=== PATIENT | female | born 1985 | race Two or more races ===

== ENCOUNTER 2019-01-28 02:39 | Emergency (ER) | payer MEDICAID ==
[~2019-01-28] VITALS: Ht 172.7 cm; Wt 99.8 kg
[2019-01-28] MEDS ORDERED: ACCU-CHEK COMFORT CURVE STRIP VI ONE (03:15)
[2019-01-28 04:10] LABS: Basophils # (auto) 0 uL; Basophils % (auto) 0.4 % (0.0-2.0); Eosinophils # (auto) 0.2 uL; Eosinophils % (auto) 2.4 % (0.0-7.0); Hematocrit 38.9 % (36.0-46.0); Hemoglobin 13.2 g/dL (12.2-16.2); Lymphocytes # (auto) 2.4 uL; Lymphocytes % (auto) 33.4 % (10.0-50.0); Mean Corpuscular Hemoglobin 31.9 pg (28.0-32.0); Monocytes # (auto) 0.8 uL; Monocytes % (auto) 10.6 % (0.0-12.0); Neutrophils # (auto) 3.9 uL; Neutrophils % (auto) 53.2 % (37.0-80.0); Nucleated Red Blood Cells % 0.1 %; Platelet Count (auto) 312 10^3/uL (140-450); Red Blood Cells 4.14 10^6/uL (4.0-5.20); Red Cell Distribution Width 13.4 % (11.8-14.3); White Blood Cell 7.3 10^3/uL (4.4-10.8)
[2019-01-28 04:36] LABS: Salicylate < 1.7 mg/dL (2.8-20.0)
[2019-01-28 04:37] LABS: Potassium 3.1 mmol/L (3.5-5.1)
[2019-01-28 04:41] LABS: Albumin 4.1 g/dL (3.4-5.0); BUN/Creatinine Ratio 16.2; Calcium 9.1 mg/dL (8.5-10.1)
[2019-01-28 04:48] LABS: Bilirubin, Total 0.9 mg/dL (0.2-1.0); Total Protein 8.6 g/dL (6.4-8.2)
[2019-01-28 04:50] LABS: Acetaminophen < 2.0 ug/mL (10-30)
[2019-01-28] MEDS ORDERED: SODIUM CHLORIDE 0.9% 1,000 ML IV ONE (08:41)
[2019-01-28] MEDS: SODIUM CHLORIDE 0.9% 1,000 ML IV ONE ×2 (09:05→11:29)
[2019-01-28] MEDS ORDERED: POTASSIUM EFFERVESENT TAB 25 MEQ PO ONE (09:15)
[2019-01-28] MEDS ORDERED: POTASSIUM CHL 10 Meq TABLET PO ONE (09:45)
[2019-01-28] MEDS ORDERED: POTASSIUM CHLORIDE 40 MEQ, LIDOCAINE 1% (LOCAL ANESTH.) 4 ML in SODIUM CHL 0.9% 100 ML IV ONE (10:15)
[2019-01-28] MEDS ORDERED: POTASSIUM CHLORIDE 20 MEQ, LIDOCAINE 1% (LOCAL ANESTH.) 2 ML in SODIUM CHL 0.9% 100 ML IV ONE (10:15)
[2019-01-28 16:11] LABS: Albumin 3.5 g/dL (3.4-5.0); Potassium 3.6 mmol/L (3.5-5.1)
[2019-01-28 16:15] LABS: Bilirubin, Total 0.8 mg/dL (0.2-1.0); Total Protein 7.1 g/dL (6.4-8.2)
[2019-01-28 16:38] LABS: BUN/Creatinine Ratio 18.1
[2019-01-28] MEDS ORDERED: LORazepam 0.5 MG TAB PO PRN (18:45)
[2019-01-28] MEDS ORDERED: OLANZapine 5 MG TAB PO ONE (20:00)
[2019-01-30] MEDS ORDERED: OLANZapine 5 MG TAB PO SCH (22:00)
[2019-01-30] MEDS: LORazepam 0.5 MG TAB PO PRN (22:28)
[2019-01-31] MEDS ORDERED: OLANZapine 5 MG TAB ONE (21:20)
[2019-01-31] MEDS ORDERED: LORazepam 0.5 MG TAB ONE ×2 (21:20→21:22)
[2019-01-31] MEDS: OLANZapine 5 MG TAB PO SCH (22:00)
[2019-01-31] MEDS: LORazepam 0.5 MG TAB PO PRN (23:49)
[2019-02-01] MEDS ORDERED: OLANZapine 5 MG TAB ONE (22:22)
[2019-02-01] MEDS: OLANZapine 5 MG TAB PO SCH (22:26)
[2019-02-02] MEDS ORDERED: LORazepam 0.5 MG TAB ONE (13:18)
[2019-02-02] MEDS: LORazepam 0.5 MG TAB PO PRN (13:21)
[2019-02-02 16:30] LABS: Urine Pregnacy Test Negative (Negative)
[2019-02-02 16:42] LABS: Alcohol, Urine < 3.0 mg/dL (0-5); Amphetamine Screen, Urine NEGATIVE (NEGATIVE); Barbiturate Scree,Urine NEGATIVE (NEGATIVE); Benzodiazephine Screen, Urine NEGATIVE (NEGATIVE); Cannabinoid Screen, Urine NEGATIVE (NEGATIVE); Cocaine Screen, Urine NEGATIVE (NEGATIVE); Opiate Scree,Urine NEGATIVE (NEGATIVE); Phencyclidine Screen, Urine NEGATIVE (NEGATIVE)
[2019-02-02 17:13] LABS: Urine Bacteria NONE SEEN /hpf (None Seen); Urine Blood 1+ /uL (Negative); Urine Mucus FEW (None Seen); Urine Specific Gravity 1.027 (1.001-1.035); Urine WBC 214 /hpf (0 - 5)
[2019-02-02] MEDS ORDERED: SULFAMETHOX W/TRIMETH(800/160MG) DS TAB PO SCH (18:00)
[2019-02-02 19:26] VITALS: BP 121/68
== END 2019-01-28 20:04 ==
LOC: EDBD 02:39 → ER 02:41
DX: R45.851 Suicidal ideations (principal); E87.6 Hypokalemia; R07.9 Chest pain, unspecified; R51 Headache; Z59.0 Homelessness
CPT/HCPCS: 36415; 70450; 71045; 80053; 80307; 80329; 81001; 81025; 83605; 85025; 87040; 93005; 94761; 96365; 96366; 99285; J2001; J3480; J7030

== ENCOUNTER 2019-11-12 11:54 | Emergency (ER) | payer MEDICAID ==
[~2019-11-12] VITALS: Ht 170.2 cm; Wt 113.4 kg
[2019-11-12 12:40] VITALS: BP 138/92
== END 2019-11-12 13:41 | disposition home or self-care (01) ==
LOC: ER 11:54
DX: J20.9 Acute bronchitis, unspecified (principal); F17.210 Nicotine dependence, cigarettes, uncomplicated
CPT/HCPCS: 71046